=== PATIENT | male | born 1975 | race Caucasian/White ===

== ENCOUNTER 2017-09-26 11:43 | Emergency (ER) | payer OTHER ==
[2017-09-26] MEDS ORDERED: fentaNYL 100 MCG/2 ML INJ IVP ONE ×2 (11:59→14:01)
--- NOTE | 2017-09-26 12:09 | EDPHY ---
H & P Smoking Status: Never smoked Time Seen by Provider: 09/26/17 12:00 HPI/ROS: CHIEF COMPLAINT: Left wrist injury HISTORY OF PRESENT ILLNESS: 42-year-old male presents to the emergency department with injury to his left wrist P the patient was at home approximately minutes for to roll and slipped on some ice on the back deck and fell on his left outstretched hand. He denies any his head or losing consciousness. Denies neck or back pain. Denies chest pain or difficulty breathing. Denies paresthesias in his upper or lower extremities. Denies injury to the lower extremities. REVIEW OF SYSTEMS: Constitutional: No fever, no chills. Eyes: No double or blurry vision. ENT: No sore throat. Respiratory: No cough, no shortness of breath. Cardiac: No chest pain. Gastrointestinal: No abdominal pain, vomiting or diarrhea. Genitourinary: No dysuria. Musculoskeletal: No neck or back pain. Skin: No rashes. Neurological: No headache. (JadonCristal) Past Medical/Surgical History: Negative (Shelby Diopphilippe De La Paz) Social History: (Cristal Diop) Physical Exam: General Appearance: Alert, no distress. No local trauma to his head. He is mentating normally and answering close appropriately. Eyes: Pupils equal and round. Extraocular motions are all intact. ENT: Mouth: Mucous membranes moist. Respiratory: No wheezing, rhonchi, or rales, lungs are clear to auscultation. Cardiovascular: Regular rate and rhythm. Gastrointestinal: Abdomen is soft and nontender, no masses, no rebound or guarding, bowel sounds normal. Neurological: Alert and oriented x 3, cranial nerves II through XII grossly intact Skin: Warm and dry, no rashes. Musculoskeletal: Nontender to palpate along the cervical, thoracic or lumbar spine. Neck is supple. Extremities: Obvious deformity noted to his left wrist. He has a palpable radial pulse at the radial aspect of left wrist. He has normal capillary refill fingers. He has normal sensation to light touch with normal 2 point discrimination. Limited of motion of his left hand, stand elbow sec retained left wrist. No abrasions or puncture wounds overlying the wrist. He does have a superficial bring the anterior aspect of the left lower leg. Psychiatric: Patient is oriented X 3, there is no agitation. (Cristal Diop) Constitutional: Initial Vital Signs Temperature (C) 36.8 C 09/26/17 11:51 Heart Rate 63 09/26/17 11:51 Respiratory Rate 16 09/26/17 11:51 Blood Pressure 150/98 H 09/26/17 11:51 O2 Sat (%) 100 09/26/17 11:51 O2 Delivery Mode Room Air Allergies/Adverse Reactions: Sulfa (Sulfonamide Antibiotics) Allergy (Verified 09/26/17 11:51) Home Medications: Medication Instructions Recorded oxyCODONE/APAP 5325 [Percocet 1 - 2 tab PO Q6-8PRN PRN #20 tab 09/26/17 5/325 (RX)] Medical Decision Making - Diagnostics Imaging: I viewed and interpreted images myself ED Course/Re-evaluation: 42-year-old male presents to the emergency department with left wrist injury. The patient slipped on some ice on his back deck fell injuring his left wrist. Dr. Lawrence, secondary supervising physician, also evaluated the patient and performed hematoma block an attempted reduction of the left wrist. Ultimately Dr. Santana, on-call orthopedic surgeon, was contacted who came to perform reduction of the patient's wrist. The patient was placed in sugar-tong splint by Dr. Santana in the emergency department in the patient be discharged home with a sling and will schedule outpatient appointment with orthopedics for likely surgical repair. (Shelby Diopa Ana Cristina) Differential Diagnosis: Including but not limited to fracture, dislocation, contusion, sprain (Jadon Cristal De La Paz) Other Provider: I evaluated and participated in the management of the patient. I also evaluated the patient independently. My co-signature indicates that I have reviewed this chart and I agree with the findings and plan of care as documented. My personal H&P findings include: The patient presents the ED with a left wrist injury with associated deformity. The patient fell while shoveling earlier today. Physical examination demonstrates an obvious Colles type fracture involving the left wrist which was closed. The patient was noted to be neurologically intact. ED course: I performed a hematoma block and attempted reduction. Clinically the fracture was able to be reduced without complication however when a post reduction x-ray was obtained there was recurrent dorsal angulation of the fracture fragment. Consultation was made with Dr. Vela from Orthopedic surgery who also attempted a closed reduction. The patient continues to have a comminuted suboptimally aligned distal radius fracture which will require ORIF. The patient is neurologically intact and has been placed in a plaster splint by Dr. Santana. The patient will be discharged from the emergency department and follow up with Orthopedic surgery as an outpatient for ORIF. (Antolin Lawrence) - Data Points Medications Given: Discontinued Medications Fentanyl (Sublimaze) 100 mcg IVP EDNOW ONE Stop: 09/26/17 12:00 Last Admin: 09/26/17 12:01 Dose: 100 mcg Fentanyl (Sublimaze) 100 mcg IVP EDNOW ONE Stop: 09/26/17 14:02 Last Admin: 09/26/17 14:05 Dose: 100 mcg Departure - Departure Disposition: Home, Routine, Self-Care Clinical Impression: Distal radius fracture, right Qualifiers: Encounter type: initial encounter Fracture type: closed Fracture morphology: unspecified fracture morphology Qualified Code(s): S52.501A - Unspecified fracture of the lower end of right radius, initial encounter for closed fracture Condition: Good Instructions: Oxycodone/Acetaminophen (By mouth), Wrist Fracture in Adults (ED) Additional Instructions: 1. Please wear splint as directed. 2. Please follow up with Dr. Santana as scheduled. 3. Ice as directed. 4. Percocet as needed for pain Referrals: Guillaume Santana MD [Medical Doctor] - As per Instructions Prescriptions: oxyCODONE/APAP 5/325 [Percocet 5/325 (RX)] 1 - 2 tab PO Q6-8PRN PRN #20 tab PRN Reason: for pain
[2017-09-26 14:09] VITALS: O2SAT 98
[2017-09-26 15:06] VITALS: BP 139/83; PULSE 52; RESP 16; TEMP 98.4
--- NOTE | 2017-09-26 15:49 | GCON ---
[f rep st] CONSULTATION ORTHOPEDIC CONSULTATION DATE OF CONSULTATION: 09/26/2017 REFERRING PHYSICIAN: Antolin Lawrence MD CHIEF COMPLAINT: Left wrist injury. HISTORY OF PRESENT ILLNESS: A 42-year-old male who is right-hand dominant and suffered a FOOSH injury to his left wrist when he slipped on ice today while shoveling his back patio. He notes he had immediate pain and obvious deformity of the wrist. He denies any numbness or tingling in either upper extremity. No other known injuries or symptoms. He presented to the [facility] Emergency Department, was found to have the above listed history and fractures of the left wrist. As a result, I was consulted as the on-call orthopedist. The patient has no other complaints concerns at this time. PAST MEDICAL HISTORY: Denies. PAST SURGICAL HISTORY: Ear tubes at approximately 3 years of age. ALLERGIES: Sulfa. MEDICATIONS: None. SOCIAL HISTORY: No tobacco or drug use. He drinks 10-14 beers per week. He is with 3 children ages 11, 9, and 4 years. He is a full-time IT technical support person. He is active with skiing, golfing, biking and tennis. FAMILY HISTORY: Father Alzheimer's disease. No other known history. REVIEW OF SYSTEMS: Eczema. Otherwise, 10-point review is negative for any other complaints, concerns, or history. PHYSICAL EXAM: VITAL SIGNS: Temperature 36.8 degrees Celsius, blood pressure 140/69, heart rate 64, respiratory rate 18, saturating at 96% on room air. GENERAL: NAD, cooperative and pleasant. HEENT: NC/AT, EOMI, PERRLA. Ears and nares patent without discharge. Oropharynx clear. NECK: NTTP, no stepoffs posteriorly, supple. Negative Lhermitte's and Spurling's. No LAD. MUSCULOSKELETAL: Left wrist is notable for edema. No calor, ecchymosis, or erythema. Skin intact throughout. Compartments soft. There is obvious deformity consistent with a dorsally displaced Colles type fracture. There is TTP throughout the wrist, though the patient did receive a hematoma block by the ER earlier today, and therefore his overall pain is decreased. Otherwise, distally neurovascularly intact without deficit. He is warm and well perfused with brisk capillary refill over all 5 digits. Palpable radial pulse. SKIN: Please see dictation above. There edema. No ecchymosis, erythema or calor. Skin intact. No other rashes or lesions. No tattoos noted. NEUROLOGIC: Nonfocal, no deficits noted. C5-T1, L2-S1 intact. DTRs are grade 2+ over bilateral lower extremities with symmetry. Deferred in the upper extremities. No clonus bilaterally. Both calves are nontender and non- swollen. Negative Homans. PSYCH: Alert and oriented x3. Appropriate mood and affect. RADIOGRAPHS: Highly comminuted intraarticular left distal radius fracture with oblique orientation from volar to dorsal i.e. proximal and distal. There is also some ulnar styloid fracturing with small fragments. DRUJ is appropriate aligned. Intercarpal relationships are appropriate without any obvious widening or increased angular relationships. Postreduction radiographs are observed dynamically, as well as printed using the mini C-arm. An appropriate reduction is achieved, though the fracture is highly unstable. IMPRESSION: Closed left distal radius intra-articular fracture with ulnar styloid fracture. PLAN: The patient's diagnoses and/or treatment options have been all informed today. At this point, he will maintain his left wrist in the sugar-tong splint placed by me. Strict nonweightbearing LUE in splint, sling for ambulation. Ice and elevation with attempt to maintain elevation above his heart at all times. Avoid NSAIDs. No smoking. OTC space p.o. APAP p.r.n. pain. Analgesics per the ER physician prescription. I will see the patient in clinic in the next 2-3 days for next evaluation, and to determine appropriate timing for surgery, as this will need ORIF. All of his questions have been answered today. He has been provided with contact information for my office, and scheduling has been arranged for him for clinic evaluation. I appreciate the opportunity to assist in the care of this patient. Please call with any questions. /[id number]/MODL MTDD
== END 2017-09-26 15:06 | disposition home or self-care (01) ==
DX: S52.501A Unspecified fracture of the lower end of right radius, initial encounter for closed fracture (principal); W01.0XXA Fall on same level from slipping, tripping and stumbling without subsequent striking against object, initial encounter
CPT/HCPCS: 96374; A4565; J3010